=== PATIENT | male | born 1995 | race Two or more races ===

== ENCOUNTER 2024-10-28 09:48 | Emergency (ER) | payer OTHER ==
[~2024-10-28] VITALS: Ht 177.8 cm; Wt 105.0 kg
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
[2024-10-28 11:24] VITALS: BP 133/94; PULSE 86; RESP 17; TEMP 98.2; O2SAT 99
[2024-10-28] MEDS ORDERED: IBUP1TAB5 PO (11:47)
== END 2024-10-28 12:02 | disposition home or self-care (01) ==
LOC: ER 09:54
DX: M25.552 Pain in left hip (principal); Z79.1 Long term (current) use of non-steroidal anti-inflammatories (NSAID); Z71.82 Exercise counseling; V29.99XA Rider (driver) (passenger) of other motorcycle injured in unspecified traffic accident, initial encounter; Y93.89 Activity, other specified; Y92.488 Other paved roadways as the place of occurrence of the external cause; Y99.8 Other external cause status
CPT/HCPCS: 73502